=== PATIENT | male | born 1985 | race Hispanic/Latino ===

== ENCOUNTER 2016-03-22 13:14 | Emergency (ER) | payer OTHER ==
[~2016-03-22] VITALS: Ht 180.3 cm; Wt 82.7 kg
[2016-03-22 13:32] VITALS: BP 148/84; PULSE 66; RESP 16; O2SAT 99
[2016-03-22 14:46] LABS: APPEARANCE,URINE CLEAR (CLEAR,HAZY); COLOR,URINE STRAW (YELLOW); OCCULT BLOOD,URINE NEGATIVE (NEGATIVE); UROBILINOGEN,URINE NORMAL (NORMAL)
[2016-03-22] MEDS ORDERED: cefTRIAXone Inj 250 MG, Lidocaine PF 1% Inj 0.9 ML in Syringe 1 EACH IM ONE (15:25)
--- NOTE | 2016-03-22 15:35 | ED.REPORT ---
HPI- Male Date of Service Mar 22, 2016 ED Provider: Abe Cai PA-C Sherin is an otherwise healthy 30-year-old male who presents with chief complaint of possible STI. Patient reports having unprotected sex with a new partner approximately 2 weeks ago. Last night he reports the onset of pruritus at the tip of his penis. Morning he developed dysuria, purulent discharge and pruritus continues. Denies allergies, fevers, chills, rashes, lesions or any other symptoms. Nursing Notes Stated Complaint: STD SYMPTOMS Chief Complaint: General Complaint Nursing Notes Reviewed: Yes Allergies: Coded Allergies: No Known Allergies (Unverified , 03/22/16) No Active Prescriptions or Reported Meds General Time Seen by MD: 14:44 Chief Complaint Penile discharge... (White) Past Medical History Past Medical History Remote history of gonorrhea/chlamydia Denies other Review of Systems Negative unless stated otherwise in history of present illness Physical Exam General: Well developed, well nourished, no acute distress. Genitourinary: Normal uncircumcised penis, slight clear discharge at urethra, no lesions or tenderness. Normal testes descended and nontender bilaterally without masses Head: Atraumatic, normocephalic. Eyes: No scleral icterus or injection. No discharge. Vision grossly intact. ENT: Voice clear, hearing grossly intact. Skin: Warm and dry. Neurological: Grossly nonfocal. Psychological: alert and oriented. Speech appropriate, linear and logical. Behavior appropriate. Initial Vital Signs Vital Signs (First) Date Time Temp Pulse Resp B/P Pulse Ox O2 Delivery O2 Flow Rate FiO2 03/22/16 13:32 36.1 66 16 148/84 99 Room Air Initial VS: Reviewed Interpretation & Diagnostics Lab Results Interpretation Test 03/22/16 14:13 Urine Color Straw (YELLOW) Urine Appearance Clear (CLEAR,HAZY) Urine pH 6.0 (5.0-8.0) Urine Specific [place] <1.005 (1.003-1.035) Urine Protein Negativemg/dL (NEG,TRACE) Urine Glucose (UA) Negativemg/dL (NEGATIVE) Urine Ketones Negativemg/dL (NEGATIVE) Urine Occult Blood Negative (NEGATIVE) Urine Nitrite Negative (NEGATIVE) Urine Bilirubin Negative (NEGATIVE) Urine Urobilinogen Normalmg/dL (NORMAL) Urine Leukocyte Esterase Moderate (NEGATIVE) Urine RBC 0-2/hpf (0-2) Urine WBC 6-10/hpf (0-5) Urine Epithelial Cells Occasional/hpf (NONE-MOD) Urine Crystals None seen (NONE SEEN) Urine Bacteria None/hpf (NONE-FEW) Urine Hyaline Casts None/lpf (NONE) Urine Granular Casts None seen (NONE SEEN) Urine Waxy Casts None seen (NONE SEEN) Urine Red Blood Cell Casts None seen (NONE SEEN) Urine White Blood Cell Casts None seen (NONE SEEN) Urine Mucus None seen (None Seen) Urine Trichomonas None seen (NONE SEEN) Urine Yeast None (NONE SEEN) Urinalysis Comment None Urine Culture Reflexed Indicated Re-Eval/Medical Decision Med Decision/Clinical Course I discussed this case with Dr. Kasper In brief this is an otherwise healthy 30-year-old male with short history of urethral pruritus, purulent discharge.. Patient reports he had unprotected sex with a new partner approximately 2 weeks ago. Denies other symptoms. His exam reveals slight clear discharge at the urethra. UA is normal and GC chlamydia test is pending. Decided to treat empirically for gonorrhea/chlamydia and advised barrier protection, primary care follow-up and gave return precautions. Discharge & Departure Impression: Primary Impression: Dysuria Disposition: Home Discharge Condition All VS Reviewed: Yes Condition: Stable Patient Instructions: Sexually Transmitted Diseases (ED) Additional Instructions: Evaluation for possible STI in the ED today. History and physical are consistent with gonorrhea/chlamydia infection. UA reveals no sign of urinary tract infection and gonorrhea/chlamydia tests are pending. We treated empirically for gonorrhea/chlamydia infection in the emergency department. There is no other treatment to be done after discharge. Follow-up with your primary care provider in about 2 weeks to confirm resolution, or sooner if symptoms do not resolve in a week or so. Return to emergency department for any new or worsening symptoms including high fever, vomiting, back pain. Referrals: [facility] Provider for APC: Lewis Bates Seth PA-C Mar 22, 2016 15:35
== END 2016-03-22 16:18 | disposition home or self-care (01) ==
LOC: SED 13:14
DX: R30.0 Dysuria (principal)
CPT/HCPCS: 81000; 87086; 87491; 87591; 96372; 99284; J0696